=== PATIENT | male | born 1950 | race Caucasian/White ===

== ENCOUNTER 2023-07-20 11:40 | Emergency (ER) | payer MEDICARE, OTHER, SELFPAY ==
[2023-07-20 12:11] VITALS: BP 147/65
[2023-07-20 12:45] LABS: % Basophils 0.2 % (0-2); % Eosinophils 0.9 % (0-6); % Immature Granulocytes 0.2 % (0-0.5); % Lymphocytes 26.4 % (20.5-51.1); % Monocytes 7.8 % (1.7-9.3); % Neutrophils 64.5 % (42.2-75.2); Absolute Eosinophils 0.1 10^3/uL (0-0.7); Absolute Lymphocytes 2.3 10^3/uL (1.2-3.4); Absolute Monocytes 0.7 10^3/uL (0.1-0.6); Absolute Neutrophils 5.7 10^3/uL (1.4-6.5); Hematocrit 45.2 % (39.0-52.0); Hemoglobin 15.1 g/dL (13.0-18.0); Mean Corp Hgb Conc. 33.4 g/dL (33.0-37.0); Mean Corpuscular Hgb 30.2 pg (27.0-31.0); Mean Corpuscular Volume 90.4 fL (80.0-94.0); Mean Platelet Volume 10.3 fL (7.4-10.4); Nucleated Red Blood Cells % 0 % (-); Platelet Count 338 10^3/uL (130-400); Red Cell Dist. Width 13.9 % (11.5-14.5); White Blood Cell Count 8.8 10^3/uL (4.8-10.8)
[2023-07-20 13:04] LABS: ALT (SGPT) 26 U/L (0-50); AST (SGOT) 28 U/L (17-59); Albumin 4.8 g/dl (3.5-5.0); Alkaline Phosphatase 66 U/L (38-126); Blood Urea Nitrogen 16 mg/dl (9-20); Calcium 9.7 mg/dl (8.4-10.2); Carbon Dioxide 29 mmol/L (22-30); Chloride 103 mmol/L (98-107); Glucose 95 mg/dl (70-99); Lipase 103 U/L (23-300); Potassium 4.7 mmol/L (3.5-5.1); Sodium 136 mmol/L (135-145); Total Bilirubin 1.5 mg/dl (0.2-1.3); Total Protein 7.3 g/dl (6.3-8.2); eGFR > 60.00
--- NOTE | 2023-07-20 13:48 | ED.GENMED ---
History of Present Illness
General
Chief Complaint: Abdominal Symptoms
Source: patient and spouse
Time Seen by Provider: 07/20/23 13:41
Travel History
Have you had any contact with someone who has COVID-19?: No
Do you have any symptoms of coronavirus? Fever > 100 degrees, chills, cough, shortness of breath, sore throat, loss of taste or smell, muscle aches, or headache?: No
History of Present Illness
History of Present Illness:
72-year-old male with past medical history of hypertension, hyperlipidemia, CAD, GERD, diverticulitis presenting the emergency department for evaluation of abdominal pain that started Saturday morning that is been gradually worsening over time, worse
in the left lower quadrant and intermittently radiating across to the suprapubic region and left mid abdomen associated with some mild nausea, intermittent feelings of tenesmus but otherwise no urinary symptoms, bowel changes, melena/hematochezia,
urinary symptoms, change in oral intake. Patient states he believes his symptoms to be likely related to diverticulitis given previous history of similar. Did not take anything at home for symptoms prior to arrival. Last colonoscopy about 10
years ago. Does not remember any abnormal findings during that colonoscopy. Social history noncontributory.
Past History
Past History
ED Past Medical History: CAD, GERD, HTN, Hypercholesterolemia, Psychiatric and Other
ED Past Surgical History: Cardiac (Stent x1, cath 2016) and Orthopedic
Social History
Tobacco: Former smoker
Alcohol: Occasional
Drug: None
Personal:
Living: with family
Employment: Employed
Family History
Family History: Other (Father with lung issues, mother with coronary disease)
Review of Systems
Review of Systems
All Other Systems: ROS reviewed and negative except as documented in HPI and ROS
Phy Exam
Physical Exam
Physical Exam:
GENERAL: Alert , in no apparent distress
EYE: clear conjunctiva b/l
HEAD: NCAT
ENT: mmm.
CARDIAC: Regular rate and rhythm .
LUNGS: Clear breath sounds bilaterally, no acute respiratory distress, no wheezes/rales/rhonchi
ABDOMEN: Soft, left lower quadrant tenderness, no r/g, no cvat, negative Santos sign, no tenderness at McBurney's point
NEUROLOGICAL: Alert and oriented
SKIN: Warm and dry, skin intact.
MUSCULOSKELETAL: well perfused.
PSYCH: Normal and appropriate interaction.
Scores
Heart Failure Risk
Heart Failure Risk Score: Not Applicable
Heart Score for Chest Pain Patients
STEMI patient?: Not applicable
Withdrawal Assessment of Alcohol
Withdrawal Assessment Completed?: Not applicable
Course
Orders/Labs/Results
Orders:
Orders
07/20/23 12:22
Complete Blood Count/With Diff Urgent
Comprehensive Metabolic Panel Urgent
Lipase Urgent
07/20/23 13:42
CT Abd/pelvis W Iv Cont Urgent
Comment:
Reason For Exam: diffuse abd pain, hx of diverticulitis
07/20/23 14:11
Urinalysis Reflex To Culture Urgent
Date Specimen was Collected: 07/20/23
Time Specimen was Collected: 14:09
07/20/23 15:01
Ketorolac [Toradol] 30 mg IV NOW STA
Abnormal Lab Results
07/20/23
12:22
Absolute Monos (auto) 0.7 H 10^3/uL
(0.1-0.6)
Total Bilirubin 1.5 H mg/dl
(0.2-1.3)
07/20/23 12:22
07/20/23 12:22
Vital Signs
Initial and Last Documented VS:
Initial Vital Signs
Temp Pulse Resp BP Pulse Ox
98.2 F 74 17 147/65 97
07/20/23 12:11 07/20/23 12:11 07/20/23 12:11 07/20/23 12:11 07/20/23 12:11
Last Documented Vital Signs
Temp Pulse Resp BP Pulse Ox
98.2 F 73 19 131/72 96
07/20/23 12:11 07/20/23 15:15 07/20/23 15:15 07/20/23 15:00 07/20/23 15:15
MDM/Problems Addressed
Differential Diagnosis Includes:
Diverticulitis, diverticulosis, pancreatitis, less likely appendicitis, GERD/gastritis
MDM/Problems Addressed:
72-year-old male presenting the emergency department for evaluation of abdominal pain x 4 days, feels similar to previous episodes of diverticulitis. Tenderness is reproducible within the left lower quadrant. Patient is overall quite
well-appearing and without any fevers. Lab work was initiated in triage and is largely unremarkable. There is no leukocytosis or leftward shift. Will obtain CT scan to further evaluate as well as urinalysis. Patient declining anything for
symptoms at this time.
*Radiology
Radiology exam reviewed: radiology read reviewed
*Pulse Oximetry
Patient hypoxic: no
*Critical Care Note
Total Time (30-74mins, 75-104mins- exclusive of procedures): Not Applicable
Data Reviewed
Review of Other/Old Records Reveals: Labs, Records and Radiology Studies
Source: patient and spouse
Patient Management
Escalation/DeEscalation of care consider admission/obs:
Patient CT without any acute findings or surgical pathology. 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 Advised close outpatient follow-up with primary care
physician and GI. Aware of return precautions but otherwise stable for discharge home.
ED Attending Note
-
Portions of this chart may have been created with voice recognition software.� Occasional wrong word or��sound alike� substitutions may have occurred due to the inherent limitations of voice recognition software.
Discharge Plan
Departure
Patient Disposition: Home (Routine Discharge)
Date of Disposition: 07/20/23
Time of Disposition: 16:50
Patient with high blood pressure during this ER visit?: Yes
Discharge Problem:
Abdominal pain
Instructions: Abdominal Pain
Prescriptions:
No Action
aspirin 81 MG tablet,delayed release (DR/EC)
81 mg PO QPM
atorvastatin 40 MG tablet
40 mg PO DAILY Qty: 90 3RF
clopidogrel 75 MG tablet
75 mg PO DAILY Qty: 90 3RF
nitroglycerin 0.4 MG tablet, sublingual
0.4 mg sublingual [id number] PRN (Reason: chest pain) Qty: 25 2RF
aluminum hydrox-magnesium carb [Acid Gone Antacid] 15 ML suspension
15 ml PO QIDPRN PRN (Reason: indigestion)
acetaminophen 325 MG tablet
650 mg PO Q4HPRN PRN (Reason: mild pain)
lisinopril 10 MG tablet
10 mg PO DAILY
diphenhydramine-acetaminophen [Tylenol PM Extra Strength] 1 EACH tablet
1 ea PO HSPRN PRN (Reason: insomnia)
omeprazole 40 MG capsule,delayed release(DR/EC)
40 mg PO DAILY Qty: 30 0RF
Referrals:
Roberto Hawk MD [Active] -
Christopher Ortiz MD [Family Provider] -
Interventions
Interventions:
*Risk Screen - Suicide Last Done: 07/20/23 14:10
*General Assessment Last Done: 07/20/23 14:10
*Neglect/Abuse Screening Last Done: 07/20/23 14:10
ED- Fall Risk Assessment Last Done: 07/20/23 14:10
*ED COVID-19 Vaccine History Last Done: 07/20/23 14:10
BR-Walqax-Jgcpgklaqv Assessment Last Done: 07/20/23 14:09
[2023-07-20 14:17] VITALS: BP 155/80
[2023-07-20 14:50] LABS: Urine Albumin Negative (Neg - Trace); Urine Bilirubin Negative (Negative); Urine Character Clear (Clear); Urine Color Yellow; Urine Glucose Negative (Negative); Urine Ketone Negative (Negative); Urine Leukocyte Negative (Negative); Urine Nitrite Negative (Negative); Urine Occult Blood Negative (Negative); Urine Urobilinogen Negative (Neg - 1+)
[2023-07-20 15:00] VITALS: BP 131/72
[2023-07-20] MEDS: TORADOL 30 MG IV (15:14)
== END 2023-07-20 17:02 | disposition home or self-care (01) ==
LOC: EMR 11:40
PROVIDERS: Emergency Medicine; Physician Assistant Medical; EMERGENCY PHYSICIAN Emergency Medicine; FAMILY PHYSICIAN Family Medicine
DX: R10.32 Left lower quadrant pain (principal); D18.03 Hemangioma of intra-abdominal structures; M51.36 Other intervertebral disc degeneration, lumbar region; I72.2 Aneurysm of renal artery; I10 Essential (primary) hypertension; K57.92 Diverticulitis of intestine, part unspecified, without perforation or abscess without bleeding; E78.00 Pure hypercholesterolemia, unspecified; I25.10 Atherosclerotic heart disease of native coronary artery without angina pectoris; K21.9 Gastro-esophageal reflux disease without esophagitis; Z95.5 Presence of coronary angioplasty implant and graft; Z87.891 Personal history of nicotine dependence; Z79.82 Long term (current) use of aspirin
CPT/HCPCS: 99285; 96374; 74177; 80053; 81003; 83690; 85025; Q9967

== ENCOUNTER 2023-07-29 10:29 | Emergency (ER) | payer MEDICARE, OTHER, SELFPAY ==
[2023-07-29 10:34] VITALS: BP 171/107
--- NOTE | 2023-07-29 11:14 | ED.GENMED ---
History of Present Illness
General
Chief Complaint: Abdominal Pain
Time Seen by Provider: 07/29/23 11:02
Travel History
Have you had any contact with someone who has COVID-19?: No
Do you have any symptoms of coronavirus? Fever > 100 degrees, chills, cough, shortness of breath, sore throat, loss of taste or smell, muscle aches, or headache?: No
History of Present Illness
History of Present Illness:
72-year-old male presents to the emergency department for evaluation of left lower quadrant pain ongoing for approximately 3 weeks. Pain is intermittent, radiates from the periumbilical region to the left abdomen. No flank pain, nausea, vomiting,
or diarrhea. He was seen here approximately 9 days ago for similar symptoms at which time a CT with IV contrast was obtained and was unremarkable. Patient was started empirically on levofloxacin and metronidazole by his GI specialist however feels
this is not helped. He was also started on a clear liquid diet 2 days ago but again continues with pain. No history of intra-abdominal surgeries.
Past History
Past History
ED Past Medical History: CAD, GERD, HTN, Hypercholesterolemia, Psychiatric and Other
ED Past Surgical History: Cardiac (Stent x1, cath 2016) and Orthopedic
Social History
Tobacco: Former smoker
Alcohol: Occasional
Drug: None
Personal:
Living: with family
Employment: Employed
Family History
Family History: Other (Father with lung issues, mother with coronary disease)
Review of Systems
Review of Systems
Allergies reviewed?: Yes
All Other Systems: ROS reviewed and negative except as documented in HPI and ROS
Phy Exam
Physical Exam
Physical Exam:
GEN: Well appearing, NAD, WDWN
Eyes: PERRLA, EOMs intact, no scleral icterus
HENT: NCAT, oral mucosa moist
Lungs: CTAB, no wheezes, rales, rhonchi, normal chest wall excursion
Cardiac: RRR, no M/R/G, no peripheral edema. Radial pulses 2+ bilat
Abdomen: S, NT, ND, NABS, no masses or hepatosplenomegaly
Neuro: AO x 3
MSK: No gross deformity or ecchymosis.
Skin: No rashes, petechiae. Normal color, no pallor or jaundice.
Psych: Calm, cooperative, proper hygiene
Course
Orders/Labs/Results
Orders:
Orders
07/29/23 11:09
Iohexol [Omnipaque] See Protocol PO NOW STA
07/29/23 11:10
CT Abd/pel W Iv And Oral Contr Urgent
Comment:
Reason For Exam: LLQ pain
07/29/23 11:18
Complete Blood Count/With Diff Urgent
Comprehensive Metabolic Panel Urgent
Urinalysis Reflex To Culture Urgent
Date Specimen was Collected: 07/29/23
Time Specimen was Collected: 11:15
Abnormal Lab Results
07/29/23
11:18
Absolute Neuts (auto) 6.8 H 10^3/uL
(1.4-6.5)
Lymphocytes % 18.1 L %
(20.5-51.1)
Total Bilirubin 1.5 H mg/dl
(0.2-1.3)
Urine Ketones 1+ A
(Negative)
07/29/23 11:18
07/29/23 11:18
Vital Signs
Initial and Last Documented VS:
Initial Vital Signs
Temp Pulse Resp BP Pulse Ox
98.1 F 98 18 171/107 97
07/29/23 10:34 07/29/23 10:34 07/29/23 10:34 07/29/23 10:34 07/29/23 10:34
Last Documented Vital Signs
Temp Pulse Resp BP Pulse Ox
98.1 F 78 18 163/74 99
07/29/23 10:34 07/29/23 15:20 07/29/23 15:20 07/29/23 15:20 07/29/23 15:20
MDM/Problems Addressed
MDM/Problems Addressed:
CT with p.o. and IV contrast was unremarkable. Unclear etiology to the patient's symptoms. He appears clinically stable and his labs are reassuring. Recommend outpatient GI follow-up, I did communicate the patient's symptoms to the GI office for
expedited outpatient follow-up. Encouraged that he resume a normal diet and attempt to keep a food diary to determine if there are any obvious causative factors.
*Critical Care Note
Total Time (30-74mins, 75-104mins- exclusive of procedures): Not Applicable
ED Attending Note
-
Portions of this chart may have been created with voice recognition software.� Occasional wrong word or��sound alike� substitutions may have occurred due to the inherent limitations of voice recognition software.
Discharge Plan
Departure
Patient Disposition: Home (Routine Discharge)
Date of Disposition: 07/29/23
Time of Disposition: 15:06
Patient with high blood pressure during this ER visit?: No
Discharge Problem:
Acute left lower quadrant pain
Instructions: Abdominal Pain
Prescriptions:
New
dicyclomine 20 mg tablet
20 mg PO TID PRN (Reason: abdominal pain) Qty: 20 0RF
No Action
aspirin 81 MG tablet,delayed release (DR/EC)
81 mg PO QPM
atorvastatin 40 MG tablet
40 mg PO DAILY Qty: 90 3RF
clopidogrel 75 MG tablet
75 mg PO DAILY Qty: 90 3RF
nitroglycerin 0.4 MG tablet, sublingual
0.4 mg sublingual [id number] PRN (Reason: chest pain) Qty: 25 2RF
aluminum hydrox-magnesium carb [Acid Gone Antacid] 15 ML suspension
15 ml PO QIDPRN PRN (Reason: indigestion)
acetaminophen 325 MG tablet
650 mg PO Q4HPRN PRN (Reason: mild pain)
lisinopril 10 MG tablet
10 mg PO DAILY
diphenhydramine-acetaminophen [Tylenol PM Extra Strength] 1 EACH tablet
1 ea PO HSPRN PRN (Reason: insomnia)
omeprazole 40 MG capsule,delayed release(DR/EC)
40 mg PO DAILY Qty: 30 0RF
Referrals:
Roberto Hawk MD [Active] -
Christopher Ortiz MD [Family Provider] -
Interventions
Interventions:
*Risk Screen - Suicide Last Done: 07/29/23 10:34
*General Assessment Last Done: 07/29/23 10:34
*Neglect/Abuse Screening Last Done: 07/29/23 10:34
ED- Fall Risk Assessment Last Done: 07/29/23 15:21
*ED COVID-19 Vaccine History Last Done: 07/29/23 10:34
*Nursing Disposition Last Done: 07/29/23 15:21
LQ-Mlnhue-Yunowtmuqx Assessment Last Done: 07/29/23 10:39
Discharge Date and Time
Discharge Date/Time: 07/29/23 15:28
[2023-07-29] MEDS: OMNIPAQUE 50 ML PO (11:21)
[2023-07-29 11:41] LABS: % Basophils 0.2 % (0-2); % Eosinophils 0.2 % (0-6); % Immature Granulocytes 0.2 % (0-0.5); % Lymphocytes 18.1 % (20.5-51.1); % Monocytes 6.8 % (1.7-9.3); % Neutrophils 74.5 % (42.2-75.2); Absolute Lymphocytes 1.7 10^3/uL (1.2-3.4); Absolute Monocytes 0.6 10^3/uL (0.1-0.6); Absolute Neutrophils 6.8 10^3/uL (1.4-6.5); Hematocrit 44.9 % (39.0-52.0); Hemoglobin 15.6 g/dL (13.0-18.0); Mean Corp Hgb Conc. 34.7 g/dL (33.0-37.0); Mean Corpuscular Hgb 30.8 pg (27.0-31.0); Mean Corpuscular Volume 88.6 fL (80.0-94.0); Mean Platelet Volume 10.3 fL (7.4-10.4); Nucleated Red Blood Cells % 0 % (-); Platelet Count 318 10^3/uL (130-400); Red Blood Cell Count 5.07 10^6/uL (4.70-6.10); White Blood Cell Count 9.2 10^3/uL (4.8-10.8)
[2023-07-29 11:44] LABS: Urine Albumin Negative (Neg - Trace); Urine Bilirubin Negative (Negative); Urine Character Clear (Clear); Urine Color Yellow; Urine Glucose Negative (Negative); Urine Ketone 1+ (Negative); Urine Leukocyte Negative (Negative); Urine Nitrite Negative (Negative); Urine Occult Blood Negative (Negative); Urine Urobilinogen Negative (Neg - 1+)
[2023-07-29 12:01] LABS: ALT (SGPT) 43 U/L (0-50); AST (SGOT) 49 U/L (17-59); Albumin 4.7 g/dl (3.5-5.0); Alkaline Phosphatase 59 U/L (38-126); Blood Urea Nitrogen 11 mg/dl (9-20); Calcium 9.4 mg/dl (8.4-10.2); Carbon Dioxide 23 mmol/L (22-30); Chloride 106 mmol/L (98-107); Glucose 97 mg/dl (70-99); Potassium 4.5 mmol/L (3.5-5.1); Sodium 138 mmol/L (135-145); Total Bilirubin 1.5 mg/dl (0.2-1.3); Total Protein 7.1 g/dl (6.3-8.2); eGFR > 60.00
[2023-07-29 12:08] VITALS: BP 158/79
[2023-07-29 13:04] VITALS: BP 154/70
[2023-07-29 14:16] VITALS: BP 158/77
[2023-07-29 15:20] VITALS: BP 163/74
== END 2023-07-29 15:28 | disposition home or self-care (01) ==
LOC: EMR 10:29
PROVIDERS: Physician Assistant; EMERGENCY PHYSICIAN Emergency Medicine; FAMILY PHYSICIAN Family Medicine
DX: R10.32 Left lower quadrant pain (principal); Z87.891 Personal history of nicotine dependence
CPT/HCPCS: 99284; 74177; 80053; 81003; 85025; Q9967

== ENCOUNTER → 2023-09-04 06:33 | Day surgery (SDC) | payer MEDICARE, OTHER, SELFPAY | LOC: GI 06:33 | PROVIDERS: ATTENDING PHYSICIAN Specialist; FAMILY PHYSICIAN Family Medicine | DX: Z12.11 Encounter for screening for malignant neoplasm of colon (principal); Z86.010 Personal history of colon polyps; R10.32 Left lower quadrant pain; K57.30 Diverticulosis of large intestine without perforation or abscess without bleeding | CPT/HCPCS: G0105 ==

== ENCOUNTER → 2023-11-05 10:31 | Outpatient (REF) | payer MEDICARE, OTHER, SELFPAY | LOC: HWRAD 10:31 | PROVIDERS: ATTENDING PHYSICIAN Nurse Practitioner Primary Care; FAMILY PHYSICIAN Family Medicine | DX: R22.42 Localized swelling, mass and lump, left lower limb (principal) | CPT/HCPCS: 93971 ==

== ENCOUNTER → 2024-01-15 15:19 | Outpatient (REF) | payer MEDICARE, OTHER, SELFPAY | LOC: RCS 15:19 | PROVIDERS: ATTENDING PHYSICIAN Nurse Practitioner; FAMILY PHYSICIAN Family Medicine | DX: R07.89 Other chest pain (principal); R06.09 Other forms of dyspnea; I10 Essential (primary) hypertension | CPT/HCPCS: 93306 ==

== ENCOUNTER → 2024-08-25 06:39 | Outpatient (REF) | payer MEDICARE, OTHER, SELFPAY ==
[2024-08-25 07:56] LABS: ALT (SGPT) 27 U/L (0-50); AST (SGOT) 26 U/L (17-59); Albumin 4.7 g/dl (3.5-5.0); Alkaline Phosphatase 63 U/L (38-126); Blood Urea Nitrogen 13 mg/dl (9-20); Carbon Dioxide 31 mmol/L (22-30); Chloride 101 mmol/L (98-107); Glucose 113 mg/dl (70-99); HDL Cholesterol 53 mg/dl; LDL Cholesterol, Calculated 99 mg/dl; Potassium 5.2 mmol/L (3.5-5.1); Sodium 140 mmol/L (135-145); Total Bilirubin 1.3 mg/dl (0.2-1.3); Total Cholesterol 178 mg/dl (50-199); Total Protein 7.1 g/dl (6.3-8.2); Triglyceride 132 mg/dl (10-149); Very Low Density Lipoprotein 26 mg/dl (0-30); eGFR > 60.00
== END ==
LOC: REG 06:39
PROVIDERS: ATTENDING PHYSICIAN Nurse Practitioner; FAMILY PHYSICIAN Family Medicine; REFERRING PHYSICIAN Specialist
DX: E78.5 Hyperlipidemia, unspecified (principal); N40.1 Benign prostatic hyperplasia with lower urinary tract symptoms; I10 Essential (primary) hypertension
CPT/HCPCS: 36415; 80053; 80061; 84153

== ENCOUNTER → 2024-08-26 10:11 | Outpatient (REF) | payer MEDICARE, OTHER, SELFPAY ==
[2024-08-26 12:09] LABS: Blood Urea Nitrogen 15 mg/dl (9-20); Calcium 9.9 mg/dl (8.4-10.2); Carbon Dioxide 32 mmol/L (22-30); Chloride 101 mmol/L (98-107); Glucose 89 mg/dl (70-99); Potassium 5.3 mmol/L (3.5-5.1); Sodium 139 mmol/L (135-145); eGFR > 60.00
== END ==
LOC: REG 10:11
PROVIDERS: ATTENDING PHYSICIAN Internal Medicine Cardiovascular Disease; FAMILY PHYSICIAN Family Medicine
DX: I10 Essential (primary) hypertension (principal)
CPT/HCPCS: 36415; 80048

== ENCOUNTER 2024-09-24 18:52 | Emergency (ER) | payer MEDICARE, OTHER, SELFPAY ==
[2024-09-24 18:54] VITALS: BP 182/96
[2024-09-24 19:15] LABS: % Basophils 0.4 % (0-2); % Eosinophils 1.4 % (0-6); % Immature Granulocytes 0.3 % (0-0.5); % Lymphocytes 30.6 % (20.5-51.1); % Monocytes 8.9 % (1.7-9.3); % Neutrophils 58.4 % (42.2-75.2); Absolute Eosinophils 0.1 10^3/uL (0-0.7); Absolute Lymphocytes 2.5 10^3/uL (1.2-3.4); Absolute Monocytes 0.7 10^3/uL (0.1-0.6); Absolute Neutrophils 4.7 10^3/uL (1.4-6.5); Hematocrit 46.2 % (39.0-52.0); Hemoglobin 15.4 g/dL (13.0-18.0); Mean Corp Hgb Conc. 33.3 g/dL (33.0-37.0); Mean Corpuscular Hgb 30.1 pg (27.0-31.0); Mean Corpuscular Volume 90.4 fL (80.0-94.0); Mean Platelet Volume 10.1 fL (7.4-10.4); Nucleated Red Blood Cells % 0 % (-); Platelet Count 341 10^3/uL (130-400); Red Blood Cell Count 5.11 10^6/uL (4.70-6.10); Red Cell Dist. Width 14.1 % (11.5-14.5)
[2024-09-24 19:29] LABS: ALT (SGPT) 24 U/L (0-50); AST (SGOT) 23 U/L (17-59); Albumin 4.5 g/dl (3.5-5.0); Alkaline Phosphatase 54 U/L (38-126); Blood Urea Nitrogen 20 mg/dl (9-20); Calcium 9.7 mg/dl (8.4-10.2); Carbon Dioxide 34 mmol/L (22-30); Chloride 102 mmol/L (98-107); Glucose 144 mg/dl (70-99); Potassium 4.6 mmol/L (3.5-5.1); Sodium 142 mmol/L (135-145); Total Bilirubin 1.1 mg/dl (0.2-1.3); Total Protein 6.8 g/dl (6.3-8.2); eGFR > 60.00
[2024-09-24 19:40] LABS: Troponin I < 0.012 ng/ml
--- NOTE | 2024-09-24 21:01 | ED.GENMED ---
History of Present Illness
General
Chief Complaint: Blood Pressure Problem
Source: patient
Exam Limitations: none
Time Seen by Provider: 09/24/24 20:42
Nursing documentation reviewed up to this point in time: agreed with
History of Present Illness
History of Present Illness:
Patient is a 73 yr old male with history of CAD cardiac stent hypertension hyperlipidemia diverticulitis presents to the ER for evaluation. Patient reports intermittently over the past several weeks patient has had a lot of fatigue and some chest
fluttering however today around 5 PM he was sitting down and felt like his blood pressure was high. He describes feeling an overwhelming feeling and checked his blood pressure and it was 210/107. He also had chest discomfort at that time.
Currently he reports the chest discomfort has resolved. He denies any fluttering now . He has had some shortness of breath but this is not new for him. He is followed by DR Short . He reports prior to that he was seen by DR Salazar . He does
report that Dr. Mcdonald recently started him on new medicine and stopped his all medicines and since then he has been feeling weak. He reports he used to be on losartan but that was changed to lisinopril he is also on metoprolol and on Crestor.
Past History
Past History
ED Past Medical History: CAD, GERD, HTN, Hypercholesterolemia, Psychiatric and Other
ED Past Surgical History: Cardiac (Stent x1, cath 2016) and Orthopedic
Social History
Tobacco: Former smoker
Alcohol: Occasional
Drug: None
Personal:
Living: with family
Employment: Employed
Family History
Family History: Other (Father with lung issues, mother with coronary disease)
Review of Systems
Review of Systems
Allergies reviewed?: Yes
Other source history: family
All Other Systems: ROS reviewed and negative except as documented in HPI and ROS
Constitutional: Reports fatigue
EENT: Reports no symptoms
Respiratory: Reports other (denies any new difficulty breathing )
Cardiac: Reports chest pain and other (has had intermittent fluttering previously denies today /denies now )
ABD/GI: Reports no symptoms
: Reports no symptoms
Musculoskeletal: Reports no symptoms
Skin: Reports no symptoms
Neurological: Reports no symptoms
Hematologic/Lymphatic: Reports no symptoms
Psychiatric: Reports no symptoms
Phy Exam
General Physical Exam
General Presentation: no apparent distress
General age: appears stated age
General Skin: warm and dry
General Habitus: normal
General Mental: alert
General Hydration: appears well hydrated
Cardiovascular Exam
Cardiovascular Exam: regular rate/rhythm, no murmur and normal peripheral pulses
Pulmonary Exam
Pulmonary Exam: lungs clear and no respiratory distress
Neurological Exam
Neurological Exam: alert and oriented x3
Musculoskeletal Exam
Musculoskeletal Exam: full ROM
Skin Exam
Skin Exam: normal color and warm/dry
Psychiatric Exam
Psychiatric Exam: normal mood/affect
Course
Orders/Labs/Results
Orders:
Orders
09/24/24 18:56
Electrocardiogram (*1) Urgent
Reason for Study: Hypertension, Benign
EKG- Treatment ONCE
09/24/24 19:07
Complete Blood Count/With Diff Urgent
Comprehensive Metabolic Panel Urgent
TSH Reflex To Free T4 Urgent
Troponin I Urgent
09/24/24 21:17
Add On- LAB Urgent
Tests Added?: tsh with reflexive T4
09/24/24 21:18
Chest [CR Chest - 2 Views ] Urgent
Comment:
Reason For Exam: cp
09/24/24 21:19
EKG- Treatment ONCE
09/24/24 22:00
Electrocardiogram (*1) Stat
Reason for Study: Other
Other Reason for Exam: chest pain
09/24/24 22:08
Troponin I Urgent
Abnormal Lab Results
09/24/24
19:07
Absolute Monos (auto) 0.7 H 10^3/uL
(0.1-0.6)
Carbon Dioxide 34 H mmol/L
(22-30)
Glucose 144 H mg/dl
(70-99)
09/24/24 19:07
09/24/24 19:07
Vital Signs
Initial and Last Documented VS:
Initial Vital Signs
Temp Pulse Resp BP Pulse Ox
98.1 F 75 18 182/96 99
09/24/24 18:54 09/24/24 18:54 09/24/24 18:54 09/24/24 18:54 09/24/24 18:54
Last Documented Vital Signs
Temp Pulse Resp BP Pulse Ox
98.1 F 65 19 157/76 96
09/24/24 18:54 09/24/24 22:45 09/24/24 22:45 09/24/24 23:42 09/24/24 21:15
MDM/Problems Addressed
MDM/Problems Addressed:
As documented patient is a 73-year-old male who presented with for chest pressure. This evening patient was sitting down and felt an overwhelming sensation his blood pressure was high and he also had some chest pressure. He reports for the past
several weeks he has had some intermittent fatigue and fluttering he had no fluttering this evening but the chest pressure and elevated blood pressure is what prompted him to come to the ER. He presents awake alert no acute distress. He does have
a history of cardiac stent. He is on aspirin. He is followed by cardiology here. He used to see Dr. Munguia and is presently seeing Dr. Short He does report some of his meds have been changed and since they been changed he has not felt
himself.
He has had no chest pressure here in the ER he has had 2 negative cardiac troponins with no acute EKG findings normal chest x-ray. Regarding fatigue TSH was done and normal. He is on medication for blood pressure including losartan and lisinopril
and has been taking this along with his Crestor and aspirin. His blood pressure is mildly elevated however not concerning. Patient has remained asymptomatic here will DC on chest pain hotline discussed close outpatient follow-up with his
edi manager to discuss medications, elevated bp and further evaluation of chest pain.
Chronic conditions affecting care:
htn, high cholesterol, cad
*Radiology
Radiology exam reviewed: radiology read reviewed
*Pulse Oximetry
Patient hypoxic: no
*EKG
Interpreted by ED Provider?: Yes
Heart Rate: 72
Rate: normal
Rhythm: sinus
Ischemia: other (repeat ekg unchanged )
*Critical Care Note
Total Time (30-74mins, 75-104mins- exclusive of procedures): Not Applicable
ED Attending Note
-
Portions of this chart may have been created with voice recognition software.� Occasional wrong word or��sound alike� substitutions may have occurred due to the inherent limitations of voice recognition software.
Discharge Plan
Departure
Patient Disposition: Home (Routine Discharge)
Date of Disposition: 09/24/24
Time of Disposition: 23:39
Patient with high blood pressure during this ER visit?: Yes
Condition: Fair
Covid-19: Not Applicable
Discharge Problem:
Chest pain
Instructions: High Blood Pressure (DC), Chest Pain CBC Follow Up, BLOOD PRESSURE
Prescriptions:
No Action
aspirin 81 MG tablet,delayed release (DR/EC)
81 mg PO QPM
atorvastatin 40 MG tablet
40 mg PO DAILY Qty: 90 3RF
clopidogrel 75 MG tablet
75 mg PO DAILY Qty: 90 3RF
nitroglycerin 0.4 MG tablet, sublingual
0.4 mg sublingual [id number] PRN (Reason: chest pain) Qty: 25 2RF
aluminum hydrox-magnesium carb [Acid Gone Antacid] 15 ML suspension
15 ml PO QIDPRN PRN (Reason: indigestion)
acetaminophen 325 MG tablet
650 mg PO Q4HPRN PRN (Reason: mild pain)
lisinopril 10 MG tablet
10 mg PO DAILY
diphenhydramine-acetaminophen [Tylenol PM Extra Strength] 1 EACH tablet
1 ea PO HSPRN PRN (Reason: insomnia)
omeprazole 40 MG capsule,delayed release(DR/EC)
40 mg PO DAILY Qty: 30 0RF
dicyclomine 20 mg tablet
20 mg PO TID PRN (Reason: abdominal pain) Qty: 20 0RF
Referrals:
Ezio Short MD [Active] -
UNKNOWN - PT DOES,NOT KNOW [Unknown Provider] -
Activity Restrictions/Additional Instructions:
As discussed you are placed on the chest pain hotline which means you should receive a phone call from the office in the next several days ;if you do not please give them a call. Return if any worsening of symptoms. Please continue to take your
medications as previously prescribed.
Interventions
Interventions:
*Risk Screen - Suicide Last Done: 09/24/24 18:54
*General Assessment Last Done: 09/24/24 18:54
*Neglect/Abuse Screening Last Done: 09/24/24 18:54
*ED COVID-19 Vaccine History Last Done: 09/24/24 18:54
ED- Cardiac Assessment Last Done: 09/24/24 21:08
ED- Neurological Assessment Last Done: 09/24/24 21:08
ED- Pulmonary Assessment Last Done: 09/24/24 21:08
Discharge Date and Time
Print Language: ROMANIAN
[2024-09-24 22:21] LABS: TSH Reflex To Free T4 2.88 uIU/ml (0.47-4.68)
[2024-09-24 22:46] LABS: Troponin I < 0.012 ng/ml
[2024-09-24 23:42] VITALS: BP 157/76
== END 2024-09-25 00:27 | disposition home or self-care (01) ==
LOC: EMR 18:52
PROVIDERS: Nurse Practitioner; Student in an Organized Health Care Education/Training Program; EMERGENCY PHYSICIAN Emergency Medicine; FAMILY PHYSICIAN Family Medicine
DX: R07.9 Chest pain, unspecified (principal); R53.83 Other fatigue; E78.00 Pure hypercholesterolemia, unspecified; I10 Essential (primary) hypertension; I25.10 Atherosclerotic heart disease of native coronary artery without angina pectoris; Z79.82 Long term (current) use of aspirin; Z87.891 Personal history of nicotine dependence; Z95.5 Presence of coronary angioplasty implant and graft; Z79.899 Other long term (current) drug therapy
CPT/HCPCS: 99285; 71046; 80053; 84443; 84484; 85025; 93005

== ENCOUNTER → 2024-09-25 08:13 | Outpatient (REF) | payer MEDICARE, OTHER, SELFPAY ==
[2024-09-25 09:56] LABS: Blood Urea Nitrogen 18 mg/dl (9-20); Calcium 10.1 mg/dl (8.4-10.2); Carbon Dioxide 31 mmol/L (22-30); Chloride 102 mmol/L (98-107); Glucose 110 mg/dl (70-99); Potassium 4.8 mmol/L (3.5-5.1); Sodium 141 mmol/L (135-145); eGFR > 60.00
== END ==
LOC: REG 08:13
PROVIDERS: ATTENDING PHYSICIAN Internal Medicine Cardiovascular Disease; FAMILY PHYSICIAN Family Medicine
DX: I10 Essential (primary) hypertension (principal)
CPT/HCPCS: 36415; 80048

== ENCOUNTER → 2024-10-27 07:04 | Outpatient (REF) | payer MEDICARE, OTHER, SELFPAY ==
[2024-10-27 08:33] LABS: Blood Urea Nitrogen 17 mg/dl (9-20); Calcium 9.8 mg/dl (8.4-10.2); Carbon Dioxide 30 mmol/L (22-30); Chloride 104 mmol/L (98-107); Glucose 126 mg/dl (70-99); Potassium 4.7 mmol/L (3.5-5.1); Sodium 141 mmol/L (135-145); eGFR > 60.00
== END ==
LOC: REG 07:04
PROVIDERS: ATTENDING PHYSICIAN Internal Medicine Cardiovascular Disease; FAMILY PHYSICIAN Family Medicine
DX: Z95.5 Presence of coronary angioplasty implant and graft (principal)
CPT/HCPCS: 36415; 80048

== ENCOUNTER → 2025-04-26 14:32 | Outpatient (REF) | payer MEDICARE, OTHER, SELFPAY | LOC: HWRCS 14:32 | PROVIDERS: ATTENDING PHYSICIAN Internal Medicine Cardiovascular Disease; FAMILY PHYSICIAN Family Medicine | DX: Z95.5 Presence of coronary angioplasty implant and graft (principal) | CPT/HCPCS: 93306 ==

== ENCOUNTER → 2025-04-30 07:38 | Outpatient (REF) | payer MEDICARE, OTHER, SELFPAY | LOC: HWRCS 07:38 | PROVIDERS: ATTENDING PHYSICIAN Internal Medicine Cardiovascular Disease; FAMILY PHYSICIAN Family Medicine | DX: Z95.5 Presence of coronary angioplasty implant and graft (principal) | CPT/HCPCS: 78452; 93017; A9500 ==